=== PATIENT | female | born 1980 | race Caucasian/White ===

== ENCOUNTER 2024-05-05 19:48 | Emergency (ER) | payer MEDICAID, OTHER ==
[~2024-05-05] VITALS: Ht 175.3 cm; Wt 71.8 kg
[~2024-05-05 19:48] MED LIST: DSS100 PO; FERR325T27 PO; IBUP-1493 PO; PERCT PO; PREN1TAB80 PO
[2024-05-05 19:52] VITALS: TEMP 98.3
[2024-05-05] MEDS ORDERED: BUPR-49 PO (20:20)
[2024-05-05] MEDS ORDERED: ERGO500054 PO (20:20)
[2024-05-05] MEDS ORDERED: SEMA1PEN5 SQ (20:20)
[2024-05-05 20:25] LABS: BASOPHILS % (AUTO) 0.4 % (0.0-2.0); EOSINOPHILS % (AUTO) 2.8 % (1.0-6.0); HEMATOCRIT 35.4 % (36-46); HEMOGLOBIN 11.9 g/dL (12.0-16.0); LYMPHOCYTES # (AUTO) 3.2 K/uL (1.0-4.8); LYMPHOCYTES % (AUTO) 44.1 % (22.0-44.0); MEAN CORPUSCULAR HEMOGLOBIN 31.3 pg (26.0-34.0); MEAN CORPUSCULAR HGB CONC 33.7 G/dL (31.0-37.0); MEAN CORPUSCULAR VOLUME 93 fL (80-100); MONOCYTES # (AUTO) 0.5 K/uL (0.1-1.0); MONOCYTES % (AUTO) 6.5 % (2.0-9.0); NEUTROPHILS # (AUTO) 3.4 K/uL (1.8-7.7); NEUTROPHILS % (AUTO) 46.2 % (40.0-70.0); PLATELET COUNT (AUTO) 230 K/uL (150-450); RED BLOOD CELL COUNT(AUTO) 3.82 MIL/uL (4.00-5.20); RED CELL DISTRIBUTION WIDTH 13.5 % (11.5-14.5); WHITE BLOOD COUNT (AUTO) 7.3 K/uL (4.5-11.0)
[2024-05-05] MEDS: MAG HYDROX/ALUMINUM HYD/SIMETH 30 ML SUSPENSION UDCUP PO ONE (20:28)
[2024-05-05] MEDS: FAMOTIDINE 20 MG/2 ML VIAL IVP ONE (20:29)
[2024-05-05] MEDS: ACETAMINOPHEN 500 MG TABLET PO ONE (20:29)
[2024-05-05 20:35] LABS: ANION GAP 6 mmol/L (8-16); CARBON DIOXIDE 31 mmol/L (22-29); CHLORIDE 105 mmol/L (98-107); CREATININE 0.95 mg/dL (0.60-1.30); GLOMERULAR FILTR. RATE CALC > 60 mL/min (>60); GLUCOSE,RANDOM 84 mg/dL (70-110); POTASSIUM 3.7 mmol/L (3.5-5.1); SODIUM SERUM 142 mmol/L (136-145); UREA NITROGEN, BLOOD 8 mg/dL (7-18)
[2024-05-05 20:35] LABS: APPEARANCE,URINE CLEAR (CLEAR); BILIRUBIN,URINE NEGATIVE (NEGATIVE); COLOR,URINE COLORLESS (YELLOW); GLUCOSE, URINE (UA) NEGATIVE (NEGATIVE); KETONES,URINE NEGATIVE (NEGATIVE); LEUKOCYTE ESTERASE ,URINE NEGATIVE (NEGATIVE); NITRATE,URINE NEGATIVE (NEGATIVE); OCCULT BLOOD,URINE NEGATIVE (NEGATIVE); PH,URINE 6.5 (5.0-8.0); PROTEIN,URINE NEGATIVE (NEGATIVE); SPECIFIC GRAVITIY, URINE 1.004 (1.003-1.030); UROBILINOGEN,URINE <=1.0 mg/dL (<=1.0)
[2024-05-05 20:42] LABS: TROPONIN I-HIGH SENSITIVITY 16 ng/L (<51)
[2024-05-05 20:50] LABS: B-TYPE NATRIURETIC PEPTIDE 9 pg/mL (0-100)
[2024-05-05 20:59] LABS: ALANINE AMINOTRANSFERASE 15 U/L (12-78); ALBUMIN 3.8 g/dL (3.4-5.0); ALKALINE PHOSPHATASE 43 U/L (46-116); ASPARTATE AMINOTRANSFERASE 15 U/L (15-37); BILIRUBIN,TOTAL 0.2 mg/dL (0.1-1.0); TOTAL PROTEIN, SERUM 7.2 g/dL (6.4-8.2)
[2024-05-05] MEDS ORDERED: IOHEXOL 350 MG/ML 100 ML VIAL ONE (21:04)
[2024-05-05] MEDS ORDERED: SODIUM CHLORIDE 0.9% 100 ML ONE (21:04)
[2024-05-05 21:05] LABS: CREATINE KINASE, TOTAL ONLY 91 U/L (26-192)
[2024-05-05 22:32] VITALS: BP 123/68; PULSE 78; RESP 18; O2SAT 98
== END 2024-05-05 22:34 | disposition home or self-care (01) ==
LOC: EMS 19:48
DX: R07.89 Other chest pain (principal); Z88.0 Allergy status to penicillin; Z88.5 Allergy status to narcotic agent; Z98.84 Bariatric surgery status
CPT/HCPCS: 99285; 96374; 71275; 71045; 80053; 81003; 82550; 83880; 84484; 84703; 85025; 36415; 93005; Q9967; J3490; J7050